=== PATIENT | male | born 1955 | race Caucasian/White ===

== ENCOUNTER 2017-04-04 08:08 | Day surgery (SDC) | payer OTHER ==
[~2017-04-04 08:08] MED LIST: LIDOCAINE HCL 1% MPF SOL ONE; PROPOFOL 500 MG/50 ML EMU IV ONE
[2017-04-04 10:39] VITALS: BP 113/78; PULSE 71; RESP 18; TEMP 97.2; O2SAT 96
== END 2017-04-04 11:00 | disposition home health service (06) | DRG 951 ==
LOC: SURG 08:08
PROVIDERS: ATTEND Surgery
DX: Z12.11 Encounter for screening for malignant neoplasm of colon (principal); K64.4 Residual hemorrhoidal skin tags; Z80.0 Family history of malignant neoplasm of digestive organs
CPT/HCPCS: J2001; J2704